=== PATIENT | male | born 1945 | race Caucasian/White ===

== ENCOUNTER 2024-01-25 10:56 | Outpatient (RCR) | payer OTHER, SELFPAY | END 2024-01-25 12:29 | disposition home or self-care (01) | LOC: RPT 10:56 | PROVIDERS: ATTENDING PHYSICIAN Nurse Practitioner Family | DX: M54.32 Sciatica, left side (principal) | CPT/HCPCS: 97110; 97162; 97535 ==

== ENCOUNTER → 2024-11-11 11:20 | Outpatient (REF) | payer OTHER, SELFPAY | LOC: RCS 11:20 | PROVIDERS: ATTENDING PHYSICIAN Internal Medicine Cardiovascular Disease; FAMILY PHYSICIAN Nurse Practitioner Family | DX: I48.21 Permanent atrial fibrillation (principal); I48.20 Chronic atrial fibrillation, unspecified; R00.1 Bradycardia, unspecified; R94.39 Abnormal result of other cardiovascular function study; I10 Essential (primary) hypertension; I25.10 Atherosclerotic heart disease of native coronary artery without angina pectoris | CPT/HCPCS: 78452; 93017; A9500; J2785 ==

== ENCOUNTER → 2024-11-18 07:54 | Outpatient (REF) | payer OTHER, SELFPAY | LOC: RCS 07:54 | PROVIDERS: ATTENDING PHYSICIAN Internal Medicine Cardiovascular Disease; FAMILY PHYSICIAN Nurse Practitioner Family | DX: I48.21 Permanent atrial fibrillation (principal); I48.20 Chronic atrial fibrillation, unspecified; R00.1 Bradycardia, unspecified; R94.39 Abnormal result of other cardiovascular function study; I10 Essential (primary) hypertension; I25.10 Atherosclerotic heart disease of native coronary artery without angina pectoris | CPT/HCPCS: 93306 ==